=== PATIENT | female | born 1995 | race Caucasian/White ===

== ENCOUNTER 2019-01-05 13:24 | Emergency (ER) | payer OTHER ==
[~2019-01-05] VITALS: Ht 162.6 cm; Wt 55.0 kg
[2019-01-05 13:33] VITALS: BP 100/62
== END 2019-01-05 16:30 | disposition left against medical advice (07) ==
LOC: ER 13:37
DX: F41.9 Anxiety disorder, unspecified (principal); Z53.21 Procedure and treatment not carried out due to patient leaving prior to being seen by health care provider